=== PATIENT | female | born 1960 | race African-American/Black ===

== ENCOUNTER 2018-01-14 15:19 | Emergency (ER) | payer OTHER ==
[~2018-01-14] VITALS: Ht 167.6 cm; Wt 112.0 kg
[2018-01-14] MEDS ORDERED: HYDROcodone/Acetamin 7.5/325 tab ORAL ONE (16:00)
--- NOTE | 2018-01-14 16:42 | Diagnostic Imaging Report ---
Indication: Foot Pain. Mirror fell on foot. Comparison: None Findings: 3 views of the right foot were obtained. There is no radiopaque foreign body identified. No acute fractures, malalignment, erosions or periostitis are identified. Soft tissues are unremarkable. Impression: No acute findings.
--- NOTE | 2018-01-14 16:43 | Emergency Room Report ---
History of Present Illness General Chief Complaint: Lower Extremity Injury Source: Patient Present Illness HPI 57-year-old female presents to the emergency department complaining of 10 out of 10 in severity localized pain and tenderness to the dorsal right foot status post large smear falling onto her foot. Patient reports pain is exacerbated upon palpation. She denies open wounds or bleeding. she denies paresthesias. Allergies: Coded Allergies: No Known Allergies (Unverified , 01/14/18) Patient History Past Medical History: see triage record Past Surgical History: none Pertinent Family History: none Now: No Reviewed Nursing Documentation: PMH: Agreed; PSxH: Agreed Nursing Documentation-PMH Past Medical History: No Stated History Review of Systems All Other Systems: negative except mentioned in HPI Physical Exam Vital Signs Date Time Temp Pulse Resp B/P (MAP) Pulse Ox O2 Delivery O2 Flow Rate FiO2 01/14/18 15:42 98.1 81 18 145/75 100 Room Air 98.1 Sp02 EP Interpretation: reviewed, normal General Appearance: alert, GCS 15, non-toxic, mild distress Head: normocephalic, atraumatic ENT: hearing grossly normal, normal voice Neck: full range of motion Respiratory: lungs clear, normal breath sounds, speaking full sentences Cardiovascular #1: regular rate, rhythm, normal capillary refill Musculoskeletal: back normal, gait/station normal, normal range of motion, tender - dorsum of the right foot, some swelling noted to be mild, no erythema or bruising noted. no open wounds or obvious deformity Neurologic: alert, oriented x3, responsive, motor strength/tone normal, sensory intact, speech normal, grossly normal Psychiatric: judgement/insight normal Skin: normal color, no rash, warm/dry, well hydrated Medical Decision Making PA Attestation Dr. Beasley is my supervising Physician whom patient management has been discussed with. Diagnostic Impression: Primary Impression: Contusion of foot, right Qualified Codes: S90.31XA - Contusion of right foot, initial encounter ER Course 57-year-old female presents to the emergency department complaining of 10 out of 10 in severity localized pain and tenderness to the dorsal right foot status post large smear falling onto her foot. Patient reports pain is exacerbated upon palpation. She denies open wounds or bleeding. she denies paresthesias. Ddx considered but are not limited to Fracture, dislocation, contusion, Sprain/ Strain/Spasm. Vital signs: are WNL, pt. is afebrile H&PE are most consistent with musculoskeletal injury will perform imaging to r/ o fractures/dislocations. ORDERS: - X-ray Right foot 3 views - negative for fx, Dislocation, or significant soft tissue injury, per preliminary read in ED, and signed by IFEOMA Fritz , my supervising physician has reviewed, and agrees with my interpretation. ED INTERVENTIONS: - [place] PO DISCHARGE: At this time pt. is stable for d/c to home. Will provide printed patient care instructions, and any necessary prescriptions. Care plan and follow up instructions have been discussed with the patient prior to discharge. Other X-Ray Diagnostic Results Other X-Ray Diagnostic Results : X-Ray ordered: Right Foot # of Views/Limited Vs Complete: 3 View Indication: Pain EP Interpretation: Yes PA Xray: Interpretation reviewed, by supervising MD, and agrees with findings. Interpretation: no dislocation, no soft tissue swelling, no fractures Impression: No acute disease Electronically Signed by: Lorrie DIA-Marian Last Vital Signs Date Time Temp Pulse Resp B/P (MAP) Pulse Ox O2 Delivery O2 Flow Rate FiO2 01/14/18 15:42 98.1 81 18 145/75 100 Room Air 98.1 Disposition: HOME, SELF-CARE Condition: Stable Scripts Acetaminophen* (TYLENOL EXTRA STRENGTH*) 500 Mg Tablet 500 MG ORAL Q6H, #20 TAB 0 Refills Prov: Lorrie Fritz 01/14/18 Referrals: NON PHYSICIAN (PCP) Patient Instructions: Foot Contusion Additional Instructions: Take medications as directed. Follow up with a Primary Care Provider in 3-5 days, even if your symptoms have resolved. --Please review list of primary care clinics, if you do not already have a primary care provider Return sooner to ED if new symptoms occur, or current symptoms become worse. - Please note that this Emergency Department Report was dictated using [employer] technology software, occasionally this can lead to erroneous entry secondary to interpretation by the dictation equipment. Lorrie Fritz Jan 14, 2018 16:43
[2018-01-14] MEDS ORDERED: TYLENOL EXTRA500 MG ORAL (16:44)
[2018-01-14 16:58] VITALS: BP 145/75
== END 2018-01-14 17:00 | disposition home or self-care (01) ==
LOC: EMR 16:10
DX: S90.31XA Contusion of right foot, initial encounter (principal); W20.8XXA Other cause of strike by thrown, projected or falling object, initial encounter; Y92.9 Unspecified place or not applicable
CPT/HCPCS: 99283